=== PATIENT | female | born 1985 | race African-American/Black ===

== ENCOUNTER 2019-07-26 15:07 | Emergency (ER) | payer OTHER ==
[~2019-07-26] VITALS: Ht 170.2 cm; Wt 72.6 kg
[~2019-07-26 15:07] MED LIST: AMOXICILLIN 50500 MG PO; AMOXICILLIN875 MG PO; AZITHROMYCIN 2250 MG PO; BACTRIM DS TAB1 EACH PO; BENADRYL25 MG PO; CIPROFLOXACIN500 M1 PO; FLAGYL500 MG PO; HYDROCODONE-AP1 EAC6 PO; IBUPROFEN 600600 M1 PO; IBUPROFEN 800800 M1 PO; KEFLEX500 M1 PO; KEFLEX500 MG PO; LEVSIN-SL0.125 MG SL; MACROBID 100 M100 M1 PO; MACROBID 100 M100 M2 PO; MONISTAT 745 GM VG; NABUMETONE 750750 M1 PO; NAPROSYN500 MG PO; NO HOME MEDS; NOHOMEMEDICATIONS; NORCO 5-325 TA1 EACH PO; ONDANSETRON HCL4 M2 PO; PRENATAL VITAM1 EAC9 PO; PROAIR HFA8.5 GM INH; PROMETHAZINE-C120 ML PO; PROPRANOLOL 1010 M1; PROPRANOLOL 1010 MG PO; PYRIDIUM200 M1; PYRIDIUM200 MG PO; SERTRALINE HCL50 MG PO; VAGISIL CREAM28 G1 TOP; VIRTUSSIN AC L118 ML PO; XANAX 0.25 MG0.25 MG; XANAX 0.5 MG0.5 M1 PO; ZANTAC 150MG T150 M1 PO; ZANTAC 150MG T150 MG PO; ZOFRAN ODT4 MG PO; ZOLOFT25 MG; ZOLOFT50 MG PO; ZPAK PO; [UNRECOGNIZED DRUG - REMARK]
[2019-07-26] MEDS ORDERED: NAPROSYN500 MG PO ×2 (16:23→16:49)
[2019-07-26 16:33] VITALS: BP 126/70
== END 2019-07-26 16:34 | disposition home or self-care (01) ==
LOC: ER 15:07
DX: R51 Headache (principal); R43.0 Anosmia; F41.9 Anxiety disorder, unspecified; Z20.828 Contact with and (suspected) exposure to other viral communicable diseases; Z79.899 Other long term (current) drug therapy